=== PATIENT | female | born 1995 ===

== ENCOUNTER 2024-12-09 14:29 | Outpatient (CLI) | payer OTHER, SELFPAY ==
--- NOTE | ~2024-12-09 | US_ITS ---
Pelvic ultrasound. Clinical History: Abnormal uterine bleeding Technique: Realtime transabdominal and transvaginal scanning of the pelvis was performed. Color flow Doppler and Doppler spectral analysis were performed. Findings: The uterus is anteverted. The endometrial stripe has a thickness of 4 mm. IUD in satisfact ory position. No focal mass is identified. The right ovary measures 3.1 x 4.6 x 3.1 cm. No significant right ovarian or adnexal mass is seen. The left ovary measures 3.7 x 1.9 x 3.7 cm. No significant left ovarian or adnexal mass is seen. Both ovaries demonstrate small peripherally oriented follicular cysts. Vascular flow present in both ovaries on Doppler spectral analysis. There is no evidence of free fluid in the cul de sac. Impression: Morphologic appearance of the ovaries raise the possibility of polycystic ovarian syndrome. Correlate clinically. IUD in place. Reviewed, dictated and finalized at [facility]. Impression: Morphologic appearance of the ovaries raise the possibility of polycystic ovari an syndrome. Correlate clinically. IUD in place.
== END 2024-12-09 14:30 | disposition home or self-care (01) ==
PROVIDERS: PCP Emergency Medicine; Visit Provider Emergency Medicine
DX: N93.9 Abnormal uterine and vaginal bleeding, unspecified (principal); Z97.5 Presence of (intrauterine) contraceptive device
CPT/HCPCS: 76830; 76856